=== PATIENT | male | born 1995 | race Caucasian/White ===

== ENCOUNTER 2018-01-20 17:33 | Observation (INO) | payer MEDICAID, OTHER ==
[~2018-01-20] VITALS: Ht 185.4 cm; Wt 71.0 kg
[~2018-01-20 17:33] MED LIST: STRA80CA PO
[2018-01-20 17:40] VITALS: BP 155/79; PULSE 97; RESP 18; TEMP 99.3; O2SAT 99
[2018-01-20] MEDS ORDERED: SODIUM CHLORIDE 0.9% FLUSH 10 ML FLUSH IVF PRN (18:00)
[2018-01-20 18:07] VITALS: BP 151/90; PULSE 96; RESP 20; O2SAT 96
--- NOTE | 2018-01-20 18:20 | PD ---
HPI Chief Complaint: OD/ Ingestion Time Seen by Provider: 18:02 Travel History International Travel<30 days: No Contact w/Intl Traveler<30days: No Traveled to known affect area: No History of Present Illness HPI 22 y/o male presents with episode where the ambulance team states bystanders gave him CPR. When they got on scene he was awake and talking per report but they are currently not available to get more history from him. Patient is confused and appears to be on something and keeps stating that he just wants water and cannot recall what happened. History is very limited. Report from staff is he did not receive any Narcan or other medication PFS Past Medical History Asthma: No Autoimmune Disease: No Blood Disorders: No Anxiety: No Depression: No Heart Rhythm Problems: No Cardiovascular Problems: No Chest Pain: No Diminished Hearing: No Genitourinary: No Headaches: Yes (FROM [place]) Hypertension: No Musculoskeletal: No Neurologic: No Psychiatric: Yes (ADHD) Respiratory: No Migraines: No Seizures: No Sickle Cell Disease: No Sleep Apnea: No Tetanus Vaccination: Unknown Influenza Vaccination: Yes Past Surgical History Abdominal Surgery: No Appendectomy: No Cardiac Surgery: No Cholecystectomy: No Ear Surgery: No Endocrine Surgery: No Eye Surgery: No Genitourinary Surgery: No Gynecologic Surgery: No Neurologic Surgery: No Oral Surgery: No Thoracic Surgery: No Social History Alcohol Use: No (OCCASIONALLY) Tobacco Use: Yes (2 CIGARETTES/DAILY) Substance Use: Yes (COCAINE, ICE) Allergies-Medications (Allergen,Severity, Reaction): Coded Allergies: No Known Allergies (Verified , 11/28/08) Reported Meds & Prescriptions Reported Meds & Active Scripts Active Strattera (Atomoxetine HCl) 80 Mg Cap 80 Mg PO DAILY Review of Systems ROS Limitations: Altered Mental Status Physical Exam Exam Limitations: Altered Mental Status Narrative GENERAL: 22 y/o male who appears acutely intoxicated SKIN: Focused skin assessment warm/dry. HEAD: Normocephalic. EYES: Pupils equal and round. No scleral icterus. No injection or drainage. ENT: No nasal bleeding or discharge. Mucous membranes pink and moist. NECK: Trachea midline. CARDIOVASCULAR: Regular rate and rhythm. RESPIRATORY: No accessory muscle use. Clear to auscultation. Breath sounds equal bilaterally. GASTROINTESTINAL: Abdomen soft, non-tender, nondistended. MUSCULOSKELETAL: No obvious deformities. No clubbing. No cyanosis. NEUROLOGICAL: Awake and alert to name. moves all extremities. Normal speech. PSYCHIATRIC: Appropriate mood and affect; insight and judgment normal. Data Data Last Documented VS Vital Signs Date Time Temp Pulse Resp B/P (MAP) Pulse Ox O2 Delivery O2 Flow Rate FiO2 01/20/18 18:07 96 20 151/90 (110) 96 Room Air 01/20/18 17:40 99.3 Orders Orders Electrocardiogram (01/20/18 17:52) Complete Blood Count With Diff (01/20/18 17:52) Comprehensive Metabolic Panel (01/20/18 17:52) Prothrombin Time / Inr (Pt) (01/20/18 17:52) Act Partial Throm Time (Ptt) (01/20/18 17:52) Chest, Single Ap (01/20/18 17:52) Iv Access Insert/Monitor (01/20/18 17:52) Ecg Monitoring (01/20/18 17:52) Oximetry (01/20/18 17:52) Sodium Chloride 0.9% Flush (Ns Flush) (01/20/18 18:00) Drug Screen, Random Urine (01/20/18 17:52) Alcohol (Ethanol) (01/20/18 17:52) Lactic Acid (01/20/18 17:52) Blood Culture (01/20/18 17:52) Ckmb (Isoenzyme) Profile (01/20/18 17:52) Troponin I (01/20/18 17:52) Ct Brain W/O Iv Contrast(Rout) (01/20/18 ) Labs Laboratory Tests Test 01/20/18 18:00 [facility] Medical Decision Making Medical Screen Exam Complete: Yes Emergency Medical Condition: Yes Medical Record Reviewed: Yes (pmh confirmed) Differential Diagnosis Overdose, coingestion, electrolyte abnormality, atypical cardiac event Narrative Course We will check blood work, EKG, chest x-ray and monitor. Physician Communication Physician Communication dr purdy to follow workup and reevaluate Lesly Jones MD January 20, 2018 18:20
--- NOTE | 2018-01-20 18:45 | RADRPT ---
EXAM DATE/TIME: 01/20/2018 18:08 [facility] COMPARISON: No previous studies available for comparison. INDICATIONS : Evaluate lung status. Possible overdose. MEDICAL HISTORY : None. SURGICAL HISTORY : None. ENCOUNTER: Initial ACUITY: 1 day PAIN SCORE: 0/10 LOCATION: Bilateral chest FINDINGS: A single view of the chest demonstrates the lungs to be symmetrically aerated without evidence of mas s, infiltrate or effusion. The cardiomediastinal contours are unremarkable. Osseous structures are intact. CONCLUSION: No acute disease. Rios White MD on January 20, 2018 at 18:43 Board Certified Radiologist. This report was verified electronically.
[2018-01-20 19:18] LABS: AUTOMATED NEUTROPHIL # 2.9 TH/MM3 (1.8-7.7); BASOPHIL % 0.7 % (0.0-2.0); EOSINOPHIL # 0.2 TH/MM3 (0-0.4); HEMATOCRIT 41.3 % (39.0-51.0); HEMOGLOBIN 14.6 GM/DL (13.0-17.0); LYMPH % 34.4 % (9.0-44.0); LYMPHOCYTE # 1.9 TH/MM3 (1.0-4.8); MEAN CELL VOLUME 90.8 FL (80.0-100.0); MEAN CORPUSCULAR HEMOGLOBIN 32.1 PG (27.0-34.0); MEAN CORPUSCULAR HGB CONC 35.3 % (32.0-36.0); MONO % 10.1 % (0.0-8.0); MONOCYTE # 0.6 TH/MM3 (0-0.9); NEUT % 51.8 % (16.0-70.0); PLATELET COUNT 251 TH/MM3 (150-450); RED BLOOD COUNT 4.54 MIL/MM3 (4.50-5.90); RED CELL DISTRIBUTION WIDTH 13.2 % (11.6-17.2); WHITE BLOOD COUNT 5.6 TH/MM3 (4.0-11.0)
[2018-01-20] MEDS ORDERED: SODIUM CHLOR 0.9% 1000 ML INJ 1,000 ML IV ONE (19:30)
[2018-01-20] MEDS ORDERED: ONDANSETRON HCL 4 MG/2 ML VIAL IV PUSH ONE ×2 (19:30→21:15)
[2018-01-20 19:31] LABS: INTERNATIONAL NORMALIZED RATIO 1.1 RATIO
[2018-01-20 19:38] LABS: ALBUMIN 3.7 GM/DL (3.4-5.0); AST (GOT) 50 U/L (15-39); BICARBONATE 22.8 MEQ/L (21.0-32.0); BLOOD UREA NITROGEN 15 MG/DL (7-18); CALCIUM 8.2 MG/DL (8.5-10.1); CHLORIDE 106 MEQ/L (98-107); CREATININE 1.34 MG/DL (0.60-1.30); GLOMERULAR FILTRATION RATE 68 ML/MIN (>89); GLUCOSE,RANDOM 122 MG/DL (74-106); SODIUM (NA) 139 MEQ/L (136-145)
[2018-01-20 19:39] LABS: ALT (GPT) 41 U/L (9-52)
[2018-01-20 19:43] LABS: ALKALINE PHOSPHATASE 73 U/L (45-117); TOTAL BILIRUBIN ADULT 0.4 MG/DL (0.2-1.0); TOTAL PROTEIN 7.1 GM/DL (6.4-8.2); TROPONIN I LESS THAN 0.02 NG/ML (0.02-0.05)
[2018-01-20 19:51] VITALS: BP 139/83; PULSE 91; RESP 16; O2SAT 97
--- NOTE | 2018-01-20 20:25 | RADRPT ---
EXAM DATE/TIME: 01/20/2018 20:14 [facility] COMPARISON: No previous studies available for comparison. INDICATIONS : Trauma ,nausea vomiting RADIATION DOSE: 35.02 CTDIvol (mGy) MEDICAL HISTORY : None SURGICAL HISTORY : None. ENCOUNTER: Initial ACUITY: 1 day PAIN SCALE: 4/10 LOCATION: cranial TECHNIQUE: Multiple contiguous axial images were obtained of the head. Using automated exposure control and adj ustment of the mA and/or kV according to patient size, radiation dose was kept as low as reasonably a chievable to obtain optimal diagnostic quality images. DICOM format image data is available electro nically for review and comparison. FINDINGS: CEREBRUM: The ventricles are normal for age. No evidence of midline shift, mass lesion, hemorrhage or acute in farction. No extra-axial fluid collections are seen. POSTERIOR FOSSA: The cerebellum and brainstem are intact. The 4th ventricle is midline. The cerebellopontine angle i s unremarkable. EXTRACRANIAL: The visualized portion of the orbits is intact. SKULL: The calvaria is intact. No evidence of skull fracture. CONCLUSION: No acute intracranial abnormality. Rios White MD on January 20, 2018 at 20:23 Board Certified Radiologist. This report was verified electronically.
[2018-01-20 22:45] VITALS: BP 134/75; PULSE 79; RESP 16; O2SAT 98
[2018-01-20] MEDS ORDERED: ONDANSETRON HCL 4 MG/2 ML VIAL IVP PRN (23:45)
[2018-01-20] MEDS ORDERED: SODIUM CHLORIDE 0.9% FLUSH 10 ML FLUSH IV FLUSH PRN (23:45)
[2018-01-20] MEDS ORDERED: NALOXONE HCL 0.4 MG/ML AMP IV PUSH PRN (23:45)
--- NOTE | 2018-01-20 23:50 | HHI.HP ---
HPI Service [facility] Primary Care Physician Unknown Admission Diagnosis Altered mental status, intractable n/v, cocaine ingestion/OD? Diagnoses: Travel History International Travel<30 Days: No Contact w/Intl Traveler <30 Da: No Traveled to Known Affected Are: No History of Present Illness 22-year-old male with a past medical history significant for IV drug abuse presents the emergency department for evaluation of an overdose. The patient reports that he was shooting up what he believed to be was IV cocaine however upon an injection he felt strange and lightheaded and ultimately lost consciousness. He was with his friends who called EMS. It is unclear if CPR was performed. At this time, the patient reports he feels well but complains of nausea and vomiting. He denies any chest pain or shortness of breath. No fevers/chills. No abdominal pain. No diarrhea. No weakness or fatigue. No lateralizing signs/symptoms. Review of Systems Except as stated in HPI: all other systems reviewed are Neg Past Family Social History Past Medical History IV drug abuse Past Surgical History None Reported Medications Reported Meds & Active Scripts Active Strattera (Atomoxetine HCl) 80 Mg Cap 80 Mg PO DAILY Allergies: Coded Allergies: No Known Allergies (Verified , 11/28/08) Family History Negative for CAD/DM Social History Positive tobacco. Rare alcohol. IV use of cocaine and methamphetamine. Physical Exam Vital Signs Vital Signs Date Time Temp Pulse Resp B/P (MAP) Pulse Ox O2 Delivery O2 Flow Rate FiO2 01/20/18 22:45 79 16 134/75 (94) 98 Room Air 01/20/18 19:51 91 16 139/83 (101) 97 01/20/18 18:07 96 20 151/90 (110) 96 Room Air 01/20/18 17:46 18 99 Room Air 01/20/18 17:40 99.3 97 18 155/79 (104) 99 Physical Exam GENERAL: Thin, male lying in bed SKIN: No rashes, ecchymoses or lesions. Cool and dry. HEAD: Atraumatic. Normocephalic. No temporal or scalp tenderness. EYES: Pupils equal round and reactive. Extraocular motions intact. No scleral icterus. No injection or drainage. ENT: Nose without bleeding, purulent drainage or septal hematoma. Throat without erythema, tonsillar hypertrophy or exudate. Uvula midline. Airway patent. NECK: Trachea midline. No JVD or lymphadenopathy. Supple, nontender, no meningeal signs. CARDIOVASCULAR: Regular rate and rhythm without murmurs, gallops, or rubs. RESPIRATORY: Clear to auscultation. Breath sounds equal bilaterally. No wheezes , rales, or rhonchi. GASTROINTESTINAL: Abdomen soft, non-tender, nondistended. No hepato-splenomegaly , or palpable masses. No guarding. MUSCULOSKELETAL: Extremities without clubbing, cyanosis, or edema. No joint tenderness, effusion, or edema noted. No calf tenderness. NEUROLOGICAL: Awake and alert. Cranial nerves II through XII intact. Motor and sensory grossly within normal limits. Normal speech. Laboratory Laboratory Tests Test 01/20/18 18:00 01/20/18 19:21 01/20/18 23:15 White Blood Count 5.6 Red Blood Count 4.54 Hemoglobin 14.6 Hematocrit 41.3 Mean Corpuscular Volume 90.8 Mean Corpuscular Hemoglobin 32.1 Mean Corpuscular Hemoglobin Concent 35.3 Red Cell Distribution Width 13.2 Platelet Count 251 Mean Platelet Volume 9.0 Neutrophils (%) (Auto) 51.8 Lymphocytes (%) (Auto) 34.4 Monocytes (%) (Auto) 10.1 Eosinophils (%) (Auto) 3.0 Basophils (%) (Auto) 0.7 Neutrophils # (Auto) 2.9 Lymphocytes # (Auto) 1.9 Monocytes # (Auto) 0.6 Eosinophils # (Auto) 0.2 Basophils # (Auto) 0.0 CBC Comment DIFF FINAL Differential Comment Prothrombin Time 11.0 Prothromb Time International Ratio 1.1 Activated Partial Thromboplast Time 22.9 Blood Urea Nitrogen 15 Creatinine 1.34 Random Glucose 122 Total Protein 7.1 Albumin 3.7 Calcium Level 8.2 Alkaline Phosphatase 73 Aspartate Amino Transf (AST/SGOT) 50 Alanine Aminotransferase (ALT/SGPT) 41 Total Bilirubin 0.4 Sodium Level 139 Potassium Level 3.8 Chloride Level 106 Carbon Dioxide Level 22.8 Anion Gap 10 Estimat Glomerular Filtration Rate 68 Total Creatine Kinase 124 Creatine Kinase MB 2.0 Troponin I LESS THAN 0.02 Ethyl Alcohol Level LESS THAN 3 Lactic Acid Level 1.1 Date/Time Source Procedure Growth Status 01/20/18 19:21 Blood Peripheral Aerobic Blood Culture Pending Received 01/20/18 19:21 Blood Peripheral Anaerobic Blood Culture Pending Received Result Diagram: 01/20/18 1800 01/20/18 1800 Isaac VTE Risk Assessment Caprini VTE Risk Assessment: No/Low Risk (score <= 1) Caprini Risk Assessment Model Point Value = 1 Point Value = 2 Point Value = 3 Point Value = 5 Age 41-60 Minor surgery BMI > 25 kg/m2 Swollen legs Varicose veins or History of unexplained or recurrent spontaneous Oral contraceptives or hormone replacement Sepsis (< 1 month) Serious lung disease, including pneumonia (< 1 month) Abnormal pulmonary function Acute myocardial infarction Congestive heart failure (< 1 month) History of inflammatory bowel disease Medical patient at bed rest Age 61-74 Arthroscopic surgery Major open surgery (> 45 min) Laparoscopic surgery (> 45 min) Malignancy Confined to bed (> 72 hours) Immobilizing plaster cast Central venous access Age >= 75 History of VTE Family history of VTE Factor V Leiden Prothrombin [id number] Lupus anticoagulant Anticardiolipin antibodies Elevated serum homocysteine Heparin-induced thrombocytopenia Other congenital or acquired thrombophilia Stroke (< 1 month) Elective arthroplasty Hip, pelvis, or leg fracture Acute spinal cord injury (< 1 month) Prophylaxis Regimen Total Risk Factor Score Risk Level Prophylaxis Regimen 0-1 Low Early ambulation 2 Moderate Order ONE of the following: *Sequential Compression Device (SCD) *Heparin 5000 units SQ BID 3-4 Higher Order ONE of the following medications: *Heparin 5000 units SQ TID *Enoxaparin/Lovenox 40 mg SQ daily (WT < 150 kg, CrCl > 30 mL/min) *Enoxaparin/Lovenox 30 mg SQ daily (WT < 150 kg, CrCl > 10-29 mL/min) *Enoxaparin/Lovenox 30 mg SQ BID (WT < 150 kg, CrCl > 30 mL/min) AND/OR *Sequential Compression Device (SCD) 5 or more Highest Order ONE of the following medications: *Heparin 5000 units SQ TID (Preferred with Epidurals) *Enoxaparin/Lovenox 40 mg SQ daily (WT < 150 kg, CrCl > 30 mL/min) *Enoxaparin/Lovenox 30 mg SQ daily (WT < 150 kg, CrCl > 10-29 mL/min) *Enoxaparin/Lovenox 30 mg SQ BID (WT < 150 kg, CrCl > 30 mL/min) AND *Sequential Compression Device (SCD) Assessment and Plan Assessment and Plan Assessment/plan: 1. Overdose of unknown substance Urine drug screen pending Monitor in observation Telemetry 2. Acute kidney injury Creatinine 1.34 IV fluid hydration Monitor renal function 3. IV drug abuse Cessation counseling provided 4. Nausea/Vomiting Likely 2/2 OD Zofran CLD IV fluids FEN Clear liquid diet Electrolytes: Monitor and replete as needed NS at 100 cc/hr Oxana Pate MD January 20, 2018 23:50
[2018-01-21] MEDS: SODIUM CHLOR 0.9% 1000 ML INJ 1,000 ML IV SCH ×2 (00:02→10:26)
[2018-01-21 03:00] VITALS: BP 129/78; PULSE 81; RESP 16; O2SAT 99
[2018-01-21 04:58] LABS: AUTOMATED NEUTROPHIL # 7.4 TH/MM3 (1.8-7.7); BASOPHIL # 0.1 TH/MM3 (0-0.2); BASOPHIL % 0.6 % (0.0-2.0); EOSINOPHIL # 0.1 TH/MM3 (0-0.4); EOSINOPHIL % 0.9 % (0.0-4.0); HEMATOCRIT 37.3 % (39.0-51.0); HEMOGLOBIN 13.6 GM/DL (13.0-17.0); LYMPH % 21.2 % (9.0-44.0); LYMPHOCYTE # 2.3 TH/MM3 (1.0-4.8); MEAN CELL VOLUME 90.1 FL (80.0-100.0); MEAN CORPUSCULAR HEMOGLOBIN 32.8 PG (27.0-34.0); MEAN PLATELET VOLUME 8.4 FL (7.0-11.0); MONO % 9.1 % (0.0-8.0); NEUT % 68.2 % (16.0-70.0); PLATELET COUNT 234 TH/MM3 (150-450); RED BLOOD COUNT 4.14 MIL/MM3 (4.50-5.90); RED CELL DISTRIBUTION WIDTH 13.2 % (11.6-17.2); WHITE BLOOD COUNT 10.8 TH/MM3 (4.0-11.0)
[2018-01-21 05:09] LABS: MEAN CORPUSCULAR HGB CONC 36.4 % (32.0-36.0)
[2018-01-21 05:25] LABS: ALBUMIN 3.4 GM/DL (3.4-5.0); AST (GOT) 25 U/L (15-39); BICARBONATE 30.4 MEQ/L (21.0-32.0); BLOOD UREA NITROGEN 12 MG/DL (7-18); CALCIUM 8.6 MG/DL (8.5-10.1); CHLORIDE 103 MEQ/L (98-107); CREATININE 1.19 MG/DL (0.60-1.30); GLOMERULAR FILTRATION RATE 78 ML/MIN (>89); GLUCOSE,RANDOM 104 MG/DL (74-106); SODIUM (NA) 139 MEQ/L (136-145)
[2018-01-21 05:26] LABS: ALT (GPT) 34 U/L (9-52)
[2018-01-21 05:27] VITALS: BP 118/59; PULSE 75; RESP 16; O2SAT 99
[2018-01-21 05:28] LABS: ALKALINE PHOSPHATASE 65 U/L (45-117); TOTAL BILIRUBIN ADULT 0.5 MG/DL (0.2-1.0); TOTAL PROTEIN 6.4 GM/DL (6.4-8.2)
[2018-01-21 07:10] VITALS: BP 114/59; PULSE 72; RESP 14; TEMP 98.1; O2SAT 100
[2018-01-21] MEDS ORDERED: SODIUM CHLORIDE 0.9% FLUSH 10 ML FLUSH IV FLUSH SCH (09:00)
[2018-01-21 11:47] VITALS: BP 123/55; PULSE 81; RESP 18; TEMP 97.7; O2SAT 99
--- NOTE | 2018-01-21 14:00 | EKG ---
Date Performed: 01/20/2018 Time Performed: 18:04:12 PTAGE: 22 years EKG: Sinus rhythm NORMAL ECG INTERPRETATION BASED ON A DEFAULT AGE OF 42 YEARS NO PREVIOUS TRACING DOCTOR: Jesika Bueno Interpretating Date/Time 01/21/2018 13:57:52
--- NOTE | 2018-01-21 14:08 | HHI.PR ---
Subjective Remarks Follow-up for overdose. Patient is currently resting in bed. No chest pain, shortness of breath, fever or chills. He is motivated to quit using IV drugs. Objective Vitals Vital Signs Date Time Temp Pulse Resp B/P (MAP) Pulse Ox O2 Delivery O2 Flow Rate FiO2 01/21/18 11:47 97.7 81 18 123/55 (77) 99 01/21/18 07:10 98.1 72 14 114/59 (77) 100 Room Air 01/21/18 05:27 75 16 118/59 (78) 99 Room Air 01/21/18 03:00 81 16 129/78 (95) 99 Room Air 01/20/18 22:45 79 16 134/75 (94) 98 Room Air 01/20/18 19:51 91 16 139/83 (101) 97 01/20/18 18:07 96 20 151/90 (110) 96 Room Air 01/20/18 17:46 18 99 Room Air 01/20/18 17:40 99.3 97 18 155/79 (104) 99 I/O 01/20/18 01/20/18 01/20/18 01/21/18 01/21/18 01/21/18 07:00 15:00 23:00 07:00 15:00 23:00 Intake Total 1000 ml Balance 1000 ml Intake IV Total 1000 ml Result Diagram: 01/21/18 0451 01/21/18 0451 Imaging Last Impressions Chest X-Ray 01/20/18 1752 Signed Impressions: Service Date/Time: Saturday, January 20, 2018 18:08 - CONCLUSION: No acute disease. Rios White MD Head CT 01/20/18 0000 Signed Impressions: Service Date/Time: Saturday, January 20, 2018 20:14 - CONCLUSION: No acute intracranial abnormality. Rios White MD Objective Remarks GENERAL: Alert, oriented 3, NAD. SKIN: Warm and dry. HEAD: Normocephalic. EYES: No scleral icterus. No injection or drainage. NECK: Supple, trachea midline. No JVD or lymphadenopathy. CARDIOVASCULAR: Regular rate and rhythm without murmurs, gallops, or rubs. RESPIRATORY: Breath sounds equal bilaterally. No accessory muscle use. GASTROINTESTINAL: Abdomen soft, non-tender, nondistended. MUSCULOSKELETAL: No cyanosis, or edema. BACK: Nontender without obvious deformity. No CVA tenderness. Procedures None A/P Problem List: (1) IVDU (intravenous drug user) ICD Code: F19.90 - Other psychoactive substance use, unspecified, uncomplicated (2) ZANDER (acute kidney injury) ICD Code: N17.9 - Acute kidney failure, unspecified (3) Overdose of illicit drug ICD Code: F19.99 - Other psychoactive substance use, unspecified with unspecified psychoactive substance-induced disorder Assessment and Plan Mr. Lugo is a pleasant 22-year-old male with a history of IV drug use who presented to the emergency department after an overdose. Patient is currently doing well. He had creatinine patient to 1.34. Overdose of illicit drug IV drug use -Counseled patient at length regarding his IV drug use habits. He is motivated to quit illicit drug use. We discussed regarding start management or other facilities to get help. -Continue normal saline at 100 cc/h. Acute kidney injury -Creatinine improved from 1.34-->1.19. -Encouraged patient to avoid all NSAIDs and other nephrotoxic medications. -Continue IV hydration while he is in the hospital. Full code. Ambulation. Discharge plan: Likely discharge later today or tomorrow morning. Chani Amor DO January 21, 2018 2:08 pm
[2018-01-21 16:26] VITALS: BP 127/76; PULSE 83; RESP 20; TEMP 98.7; O2SAT 100
--- NOTE | 2018-01-21 18:22 | HHI.DCPOC ---
Discharge Care Plan Diagnosis: (1) Overdose of illicit drug (2) ZANDER (acute kidney injury) Goals to Promote Your Health * To prevent worsening of your condition and complications * To maintain your health at the optimal level Directions to Meet Your Goals Take your medications as prescribed Follow your dietary instruction Follow activity as directed Keep your appointments as scheduled Take your immunizations and boosters as scheduled If your symptoms worsen call your PCP, if no PCP go to Urgent Care Center or Emergency Room Smoking is Dangerous to Your Health. Avoid second hand smoke Call the 24-hour hour crisis hotline for domestic abuse at Ofelia Mcneil PA-C January 21, 2018 18:22
[2018-01-22] MEDS ORDERED: INFLUENZA VIRUS VACCINE (QUADRIVALENT) 0.5 ML SYR IM ONE (10:00)
== END 2018-01-21 18:59 | disposition home or self-care (01) ==
LOC: NEPC 17:33 → NEDA 21:56 → NEDH 01-21 03:35 → NEPFCDU 01-21 11:07
PROVIDERS: ADMIT Hospitalist; ATTEND Hospitalist
DX: T65.91XA Toxic effect of unspecified substance, accidental (unintentional), initial encounter (principal); N17.9 Acute kidney failure, unspecified; R11.2 Nausea with vomiting, unspecified; F19.10 Other psychoactive substance abuse, uncomplicated
CPT/HCPCS: 70450; 71045; 80053; 80307; 82550; 82552; 83605; 84484; 85025; 85610; 85730; 87040; 93005; 96361; 96374; 96376; 99285; G0378; J2405; J7030

== ENCOUNTER 2018-02-23 02:50 | Emergency (ER) | payer MEDICAID, OTHER ==
[2018-02-23 03:06] VITALS: BP 143/81; PULSE 93; RESP 18; TEMP 100.4
[2018-02-23] MEDS ORDERED: SODIUM CHLOR 0.9% 1000 ML INJ 1,000 ML IV ONE (04:00)
[2018-02-23] MEDS ORDERED: ACETAMINOPHEN 325 MG TAB PO ONE (04:00)
[2018-02-23] MEDS ORDERED: CLINDAMYCIN INJ 600 MG in SODIUM CHLORIDE 0.9% INJ 100 ML IV ONE (04:00)
[2018-02-23] MEDS ORDERED: KETOROLAC TROMETHAMINE 30 MG/ML (IVP) VIAL IVP ONE (04:00)
--- NOTE | 2018-02-23 04:07 | PD ---
HPI Chief Complaint: Skin Problem Time Seen by Provider: 03:55 Travel History International Travel<30 days: No Contact w/Intl Traveler<30days: No Traveled to known affect area: No History of Present Illness HPI The patient is a 22-year-old male who presents to the emergency department for possible abscess to the face. The patient states he had a small "pimple like "area on the left side of his nose several days ago. The patient then scratched it and states he subsequently developed facial swelling over the left nose and left periorbital area. He does note subjective fevers with intermittent chills. The patient does have a history of IV drug abuse, last used methamphetamines 1 week ago intravenously. He denies snorting any drugs. The patient denies any history of previous MRSA infections or previous significant skin infections. Symptoms are moderate. He does complain of mild left-sided headache with the swelling. PFSH Past Medical History Asthma: No Autoimmune Disease: No Blood Disorders: No Anxiety: No Depression: No Heart Rhythm Problems: No Cancer: No Cardiovascular Problems: No Chest Pain: No Diminished Hearing: No Genitourinary: No Headaches: Yes (FROM [facility]) Hypertension: No Immune Disorder: No Musculoskeletal: No Neurologic: No Psychiatric: Yes (ADHD) Reproductive: No Respiratory: No Migraines: No Seizures: No Sickle Cell Disease: No Sleep Apnea: No Past Surgical History Abdominal Surgery: No Appendectomy: No Cardiac Surgery: No Cholecystectomy: No Ear Surgery: No Endocrine Surgery: No Eye Surgery: No Genitourinary Surgery: No Gynecologic Surgery: No Neurologic Surgery: No Oral Surgery: No Thoracic Surgery: No Social History Alcohol Use: No (OCCASIONALLY) Tobacco Use: Yes (2 CIGARETTES/DAILY) Substance Use: Yes (cocaine 1 day, meth 2 days) Allergies-Medications (Allergen,Severity, Reaction): Coded Allergies: No Known Allergies (Verified Allergy, Unknown, 02/23/18) Reported Meds & Prescriptions Reported Meds & Active Scripts Active No Active Prescriptions or Reported Medications Review of Systems Except as stated in HPI: all other systems reviewed are Neg General / Constitutional: Positive: Fever, Chills Eyes: Positive: Other (Left periorbital eye swelling) HENT: Positive: Headaches, No: Neck Stiffness, Neck Pain Cardiovascular: No: Chest Pain or Discomfort Respiratory: No: Shortness of Breath Gastrointestinal: No: Nausea, Vomiting, Abdominal Pain Psychiatric: Positive: Substance Abuse Physical Exam Narrative GENERAL: Awake, alert, 22-year-old male who appears his stated age and is in no acute respiratory distress. SKIN: Focused skin assessment warm/dry. Patient is noted to have erythema of the left nasal bridge with a small focal head just lateral on the left side of the nasal bridge. HEAD: Left periorbital swelling and nasal swelling noted. EYES: Pupils equal and round. 3 mm bilateral and reactive. EOMs appear intact. Patient is able to see fingers on the left eye at a distance of 2 feet without difficulty. ENT: No nasal bleeding or discharge. Mucous membranes pink and moist. NECK: Trachea midline. No JVD. CARDIOVASCULAR: Regular rate and rhythm. No murmur appreciated. RESPIRATORY: No accessory muscle use. Clear to auscultation. Breath sounds equal bilaterally. GASTROINTESTINAL: Abdomen soft, non-tender, nondistended. MUSCULOSKELETAL: No obvious deformities. No clubbing. No cyanosis. No edema. NEUROLOGICAL: Awake and alert. No obvious cranial nerve deficits. Motor grossly within normal limits. Normal speech. PSYCHIATRIC: Appropriate mood and affect; insight and judgment normal. Data Data Last Documented VS Vital Signs Date Time Temp Pulse Resp B/P (MAP) Pulse Ox O2 Delivery O2 Flow Rate FiO2 02/23/18 03:06 100.4 93 18 143/81 (101) Orders Orders Basic Metabolic Panel (Bmp) (02/23/18 04:00) Complete Blood Count With Diff (02/23/18 04:00) Blood Culture (02/23/18 04:00) Wound Culture And Gram Stain (02/23/18 04:00) Ketorolac Inj (Toradol Inj) (02/23/18 04:00) Clindamycin Inj (Cleocin Inj) (02/23/18 04:00) Acetaminophen (Tylenol) (02/23/18 04:00) Sodium Chlor 0.9% 1000 Ml Inj (Ns 1000 M (02/23/18 04:00) Ct Facial Bones W Iv Contrast (02/23/18 ) Lactic Acid (02/23/18 04:00) Diphenhydramine Inj (Benadryl Inj) (02/23/18 04:45) Iohexol 350 Inj (Omnipaque 350 Inj) (02/23/18 04:51) Labs Laboratory Tests Test 02/23/18 04:05 White Blood Count 13.7 TH/MM3 Red Blood Count 4.54 MIL/MM3 Hemoglobin 14.4 GM/DL Hematocrit 41.3 % Mean Corpuscular Volume 90.9 FL Mean Corpuscular Hemoglobin 31.6 PG Mean Corpuscular Hemoglobin Concent 34.8 % Red Cell Distribution Width 13.1 % Platelet Count 248 TH/MM3 Mean Platelet Volume 8.0 FL Neutrophils (%) (Auto) 76.5 % Lymphocytes (%) (Auto) 9.9 % Monocytes (%) (Auto) 11.0 % Eosinophils (%) (Auto) 2.2 % Basophils (%) (Auto) 0.4 % Neutrophils # (Auto) 10.5 TH/MM3 Lymphocytes # (Auto) 1.4 TH/MM3 Monocytes # (Auto) 1.5 TH/MM3 Eosinophils # (Auto) 0.3 TH/MM3 Basophils # (Auto) 0.1 TH/MM3 CBC Comment DIFF FINAL Differential Comment Blood Urea Nitrogen 12 MG/DL Creatinine 1.05 MG/DL Random Glucose 99 MG/DL Calcium Level 8.8 MG/DL Sodium Level 139 MEQ/L Potassium Level 3.9 MEQ/L Chloride Level 104 MEQ/L Carbon Dioxide Level 26.2 MEQ/L Anion Gap 9 MEQ/L Estimat Glomerular Filtration Rate 90 ML/MIN Lactic Acid Level 1.7 mmol/L MDM Medical Decision Making Medical Screen Exam Complete: Yes Emergency Medical Condition: Yes Medical Record Reviewed: Yes Interpretation(s) Laboratory Tests Test 02/23/18 04:05 White Blood Count 13.7 TH/MM3 Red Blood Count 4.54 MIL/MM3 Hemoglobin 14.4 GM/DL Hematocrit 41.3 % Mean Corpuscular Volume 90.9 FL Mean Corpuscular Hemoglobin 31.6 PG Mean Corpuscular Hemoglobin Concent 34.8 % Red Cell Distribution Width 13.1 % Platelet Count 248 TH/MM3 Mean Platelet Volume 8.0 FL Neutrophils (%) (Auto) 76.5 % Lymphocytes (%) (Auto) 9.9 % Monocytes (%) (Auto) 11.0 % Eosinophils (%) (Auto) 2.2 % Basophils (%) (Auto) 0.4 % Neutrophils # (Auto) 10.5 TH/MM3 Lymphocytes # (Auto) 1.4 TH/MM3 Monocytes # (Auto) 1.5 TH/MM3 Eosinophils # (Auto) 0.3 TH/MM3 Basophils # (Auto) 0.1 TH/MM3 CBC Comment DIFF FINAL Differential Comment Blood Urea Nitrogen 12 MG/DL Creatinine 1.05 MG/DL Random Glucose 99 MG/DL Calcium Level 8.8 MG/DL Sodium Level 139 MEQ/L Potassium Level 3.9 MEQ/L Chloride Level 104 MEQ/L Carbon Dioxide Level 26.2 MEQ/L Anion Gap 9 MEQ/L Estimat Glomerular Filtration Rate 90 ML/MIN Lactic Acid Level 1.7 mmol/L Last Impressions Maxillofacial CT 02/23/18 0000 Signed Impressions: CONCLUSION: 1. Nonspecific soft tissue swelling involving the left side of the nose. 2. Nasal septal deviation to the left. Differential Diagnosis Differential diagnosis includes periorbital cellulitis, post septal cellulitis, nasal abscess, MRSA infection, sepsis, facial cellulitis. Narrative Course IV was established, labs are drawn and sent, and the patient was placed on cardiac telemetry monitoring and continuous pulse oximetry monitoring. Blood culture and lactic acid were sent to lab. The patient was then administered clindamycin [address] of the facial bones with IV contrast was obtained. The patient's white count was mildly elevated at 13.7, however, lactic acid was normal. CT reveals soft tissue swelling but no obvious abscess or post septal abscess. Therefore, patient will be treated for possible MRSA infection with clindamycin and Bactrim on an outpatient basis. The patient is advised to apply warm compresses over the affected area and follow-up with a primary physician within 24-48 hours for reevaluation. Procedures Procedure Narrative I had a discussion with the patient regarding risk and benefits of a needle incision and drainage over the left nasal abscess with surrounding cellulitis. The patient was agreeable. The area was cleaned with alcohol and a 18-gauge needle was placed into the focal head of the abscess. I was able to express approximately 1-2 mL's of yellow drainage. A culture was obtained. The area once again was cleaned. A culture was sent to lab. The patient tolerated the procedure without difficulty and there is no obvious complications. Diagnosis Primary Impression: Facial cellulitis Additional Impression: Nasal abscess Patient Instructions: General Instructions Additional Instructions: Medications as directed. Apply warm compresses to the affected area. Please provide the patient a copy of his CT results and lab results at discharge. Reevaluation in 48 hours. Med/Other Pt SpecificInfo: Prescription(s) given Scripts Clindamycin (Cleocin) 150 Mg Cap 150 MG PO Q6H for Infection for 10 Days, #40 CAP 0 Refills Prov: Boni Mena MD 02/23/18 Sulfamethoxazole-Trimethoprim (Bactrim DS) 800-160 Mg Tab 1 TAB PO BID for Infection, #20 TAB 0 Refills Prov: Boni Mena MD 02/23/18 Disposition: 01 DISCHARGE HOME Condition: Stable Boni Mena MD Feb 23, 2018 04:07
[2018-02-23 04:25] LABS: AUTOMATED NEUTROPHIL # 10.5 TH/MM3 (1.8-7.7); BASOPHIL # 0.1 TH/MM3 (0-0.2); BASOPHIL % 0.4 % (0.0-2.0); EOSINOPHIL # 0.3 TH/MM3 (0-0.4); EOSINOPHIL % 2.2 % (0.0-4.0); HEMATOCRIT 41.3 % (39.0-51.0); HEMOGLOBIN 14.4 GM/DL (13.0-17.0); LYMPH % 9.9 % (9.0-44.0); LYMPHOCYTE # 1.4 TH/MM3 (1.0-4.8); MEAN CELL VOLUME 90.9 FL (80.0-100.0); MEAN CORPUSCULAR HEMOGLOBIN 31.6 PG (27.0-34.0); MEAN CORPUSCULAR HGB CONC 34.8 % (32.0-36.0); MONOCYTE # 1.5 TH/MM3 (0-0.9); NEUT % 76.5 % (16.0-70.0); PLATELET COUNT 248 TH/MM3 (150-450); RED BLOOD COUNT 4.54 MIL/MM3 (4.50-5.90); RED CELL DISTRIBUTION WIDTH 13.1 % (11.6-17.2); WHITE BLOOD COUNT 13.7 TH/MM3 (4.0-11.0)
[2018-02-23 04:41] LABS: BICARBONATE 26.2 MEQ/L (21.0-32.0); CALCIUM 8.8 MG/DL (8.5-10.1); CREATININE 1.05 MG/DL (0.60-1.30)
[2018-02-23] MEDS ORDERED: diphenhydrAMINE HCL 50 MG/ML VIAL IV PUSH ONE (04:45)
--- NOTE | 2018-02-23 04:45 | RADRPT ---
EXAM DATE: 02/23/2018 4:35 AM EDT AGE/SEX: 22 years / Male INDICATIONS: Left facial swelling. CLINICAL DATA: This is the patient's initial encounter. Patient reports that signs and symptoms have been present for 1 week and indicates a pain score of 5/10. MEDICAL/SURGICAL HISTORY: None. None. RADIATION DOSE: 47.18 CTDI (mGy) COMPARISON: No prior [facility] exams available for comparison. TECHNIQUE: Contiguous images in the axial and coronal planes were obtained using helical multirow de tector technique with 100 ml Omnipaque 350 (iohexol) nonionic water-soluble contrast as a single exa m dose. Using automated exposure control and adjustment of the mA and/or kV according to patient siz e, radiation dose was kept as low as reasonably achievable to obtain optimal diagnostic quality image s. FINDINGS: Orbits: The orbital and infraorbital osseous structures are intact. The retroconal structures have a normal configuration. No radiopaque foreign bodies are seen. Nasal Bone: The nasal bone and maxillary spine are intact. Zygomatic Arches: Symmetric without evidence of fracture. Sinuses: The maxillary, ethmoid and frontal sinuses are intact. No air-fluid levels seen. Nasal Cavity: Nasal septal deviation to the left. Soft Tissues: Nonspecific soft tissue swelling along the left side of the nose and superior to the n ose. The adjacent bony structures are grossly intact. No loculated fluid collections are demonstrated .. Intracranial: No intracranial air seen. Cribriform Plate: Grossly intact. Post Contrast: No abnormal areas of enhancement seen. CONCLUSION: 1. Nonspecific soft tissue swelling involving the left side of the nose. 2. Nasal septal deviation to the left. Electronically signed by: Chris Baltazar MD 02/23/2018 4:44 AM EDT
[2018-02-23] MEDS ORDERED: IOHEXOL 350 MG/ML 10 ML VIAL (for RAD DIAG) IVCONTRAST ONE (04:51)
[2018-02-23] MEDS ORDERED: CLIN150 PO (04:59)
[2018-02-23] MEDS ORDERED: BACT800T5 PO (04:59)
== END 2018-02-23 05:49 | disposition home or self-care (01) ==
LOC: NEPE 02:50
DX: L03.211 Cellulitis of face (principal); J32.9 Chronic sinusitis, unspecified; F90.9 Attention-deficit hyperactivity disorder, unspecified type
CPT/HCPCS: 10060; 70487; 80048; 83605; 85025; 86403; 87040; 87070; 87186; 96365; 96375; 99284; J1200; J1885; J7030; Q9967